=== PATIENT | male | born 1995 | race African-American/Black ===

== ENCOUNTER 2017-03-28 12:16 | Emergency (ER) | payer SELFPAY ==
[~2017-03-28] VITALS: Ht 188 cm; Wt 68.0 kg
[~2017-03-28 12:16] MED LIST: DICL50 PO
[2017-03-28 12:19] VITALS: BP 125/69; PULSE 82; RESP 18; TEMP 97.9; O2SAT 100
[2017-03-28] MEDS ORDERED: SODIUM CHLOR 0.9% 1000 ML INJ 1,000 ML IV ONE (14:28)
[2017-03-28] MEDS ORDERED: LIDOCAINE HCL 1% 50 ML VIAL INFIL ONE (14:30)
[2017-03-28] MEDS ORDERED: TETANUS/DIPHTHERIA TOXOID ADULT 0.5 ML VIAL IM ONE (14:30)
--- NOTE | 2017-03-28 14:39 | PD ---
HPI Chief Complaint: Laceration/Skin Injury Time Seen by Provider: 14:20 Travel History International Travel<30 days: No Contact w/Intl Traveler<30days: No Traveled to known affect area: No History of Present Illness HPI 21-year-old male presents for evaluation. He reports that at 10 AM today he was getting out of the shower. He became lightheaded and passed out. He hit his chin on the ground. He quickly regained consciousness. He reports that he has felt tired earlier today but now feels fine. He has no pain, he denies any chest pain, shortness of breath, palpitations, lightheadedness, dizziness, headache, blurred vision. He has a laceration of the chin which is no longer bleeding. Last tetanus vaccination unknown. Denies any family history of sudden cardiac . Denies any syncopal events in the past. No other complaints. FOR[facility]LY [facility] Past Medical History Medical History: Denies Significant Hx Tetanus Vaccination: < 5 Years Past Surgical History Surgical History: No Previous Surgery Social History Alcohol Use: Yes Tobacco Use: Yes Substance Use: No Allergies-Medications (Allergen,Severity, Reaction): Coded Allergies: No Known Allergies (Unverified Adverse Reaction, Unknown, 03/28/17) Reported Meds & Prescriptions Reported Meds & Active Scripts Active No Active Prescriptions or Reported Medications Review of Systems Except as stated in HPI: all other systems reviewed are Neg Physical Exam Narrative GENERAL: Well-developed well-nourished male in no acute distress. He is awake, alert, interactive. SKIN: Warm and dry. 2 cm horizontal laceration to the chin. HEAD: Atraumatic. Normocephalic. EYES: Pupils equal and round. No scleral icterus. No injection or drainage. ENT: No nasal bleeding or discharge. Mucous membranes pink and moist. NECK: Trachea midline. No JVD. CARDIOVASCULAR: Regular rate and rhythm. No murmur appreciated. RESPIRATORY: No accessory muscle use. Clear to auscultation. Breath sounds equal bilaterally. GASTROINTESTINAL: Abdomen soft, non-tender, nondistended. Hepatic and splenic margins not palpable. MUSCULOSKELETAL: No obvious deformities. No clubbing. No cyanosis. No edema. NEUROLOGICAL: Awake and alert. No obvious cranial nerve deficits. Motor grossly within normal limits. Normal speech. PSYCHIATRIC: Appropriate mood and affect; insight and judgment normal. Data Data Last Documented VS Vital Signs Date Time Temp Pulse Resp B/P (MAP) Pulse Ox O2 Delivery O2 Flow Rate FiO2 03/28/17 12:19 97.9 82 18 125/69 (87) 100 Room Air Orders Orders Electrocardiogram (03/28/17 14:28) Basic Metabolic Panel (Bmp) (03/28/17 14:28) Complete Blood Count With Diff (03/28/17 14:28) Magnesium (Mg) (03/28/17 14:28) Iv Access Insert/Monitor (03/28/17 14:28) Sodium Chlor 0.9% 1000 Ml Inj (Ns 1000 M (03/28/17 14:28) Orthostatic Vital Signs (03/28/17 14:28) Lidocaine 1% Inj (50 Ml) (Xylocaine 1% I (03/28/17 14:30) Tetanus/Diphtheria Tox Adult (Tetanus/Di (03/28/17 14:30) Labs Laboratory Tests Test 03/28/17 14:45 White Blood Count 7.6 TH/MM3 Red Blood Count 4.88 MIL/MM3 Hemoglobin 14.7 GM/DL Hematocrit 44.7 % Mean Corpuscular Volume 91.7 FL Mean Corpuscular Hemoglobin 30.2 PG Mean Corpuscular Hemoglobin Concent 32.9 % Red Cell Distribution Width 13.5 % Platelet Count 141 TH/MM3 Mean Platelet Volume 9.3 FL Neutrophils (%) (Auto) 84.3 % Lymphocytes (%) (Auto) 10.1 % Monocytes (%) (Auto) 5.1 % Eosinophils (%) (Auto) 0.4 % Basophils (%) (Auto) 0.1 % Neutrophils # (Auto) 6.4 TH/MM3 Lymphocytes # (Auto) 0.8 TH/MM3 Monocytes # (Auto) 0.4 TH/MM3 Eosinophils # (Auto) 0.0 TH/MM3 Basophils # (Auto) 0.0 TH/MM3 CBC Comment DIFF FINAL Differential Comment Blood Urea Nitrogen 13 MG/DL Creatinine 0.91 MG/DL Random Glucose 84 MG/DL Calcium Level 9.3 MG/DL Magnesium Level 2.2 MG/DL Sodium Level 139 MEQ/L Potassium Level 4.3 MEQ/L Chloride Level 103 MEQ/L Carbon Dioxide Level 30.7 MEQ/L Anion Gap 5 MEQ/L Estimat Glomerular Filtration Rate 126 ML/MIN MDM Medical Decision Making Medical Screen Exam Complete: Yes Emergency Medical Condition: Yes Medical Record Reviewed: Yes Differential Diagnosis Vasovagal syncope, orthostatic hypotension, arrhythmia, electrolyte abnormality , obstructive cardiomyopathy, hypoglycemia Narrative Course 21-year-old otherwise healthy male presents after having a syncopal event getting out of the shower. He presents with a laceration of the chin. He is currently asymptomatic. Physical examination reveals a 2 similar laceration of the chin, otherwise examination is unremarkable. Tetanus status updated. The laceration will be repaired with sutures, a verbally consents. Plan is for basic lab work, orthostatic vital signs, ECG. EKG reveals J-point ST elevation , discussed with my attending. Lab work is unremarkable. The patient has been asymptomatic during his hospital stay. He is stable for discharge. Procedures Procedure Narrative LACERATION repaired with medical student Jose LOCATION: Chin LENGTH: 2 cm NUMBER OF STITCHES/SHIRA: 3 REPAIR: The area of the laceration was prepped with Betadine and sterilely draped. The laceration was infiltrated with 1% lidocaine. The wound was copiously irrigated and explored without evidence of foreign body, tendon injury or neurovascular injury. The wound was closed using 6-0 prolene simple interrupted. This was a single layer repair. A sterile dressing was applied. The patient was advised to keep the dressing clean and dry. Patient tolerated the procedure well. Diagnosis Primary Impression: Chin laceration Additional Impression: Syncope Additional Instructions: Washout soap and water and apply antibiotic cream twice daily. Return in approximately 5 days for suture removal. Follow-up with primary care physician as needed. Med/Other Pt SpecificInfo: Wound Care Scripts No Active Prescriptions or Reported Meds Disposition: 01 DISCHARGE HOME Condition: Stable Mohan Jameson Mar 28, 2017 14:39
[2017-03-28 15:09] LABS: AUTOMATED NEUTROPHIL # 6.4 TH/MM3 (1.8-7.7); BASOPHIL % 0.1 % (0.0-2.0); EOSINOPHIL % 0.4 % (0.0-4.0); HEMATOCRIT 44.7 % (39.0-51.0); HEMO FLAGS DIFF FINAL; LYMPH % 10.1 % (9.0-44.0); LYMPHOCYTE # 0.8 TH/MM3 (1.0-4.8); MEAN CELL VOLUME 91.7 FL (80.0-100.0); MEAN CORPUSCULAR HEMOGLOBIN 30.2 PG (27.0-34.0); MEAN CORPUSCULAR HGB CONC 32.9 % (32.0-36.0); MONO % 5.1 % (0.0-8.0); NEUT % 84.3 % (16.0-70.0); PLATELET COUNT 141 TH/MM3 (150-450); RED BLOOD COUNT 4.88 MIL/MM3 (4.50-5.90); RED CELL DISTRIBUTION WIDTH 13.5 % (11.6-17.2); WHITE BLOOD COUNT 7.6 TH/MM3 (4.0-11.0)
[2017-03-28 15:26] LABS: BICARBONATE 30.7 MEQ/L (21.0-32.0); MAGNESIUM 2.2 MG/DL (1.5-2.5); POTASSIUM 4.3 MEQ/L (3.5-5.1)
[2017-03-28 15:37] VITALS: BP_SYST 112; BP_SYST 114; BP_DIAS 71; BP_DIAS 75; RESP 20
--- NOTE | 2017-03-29 18:22 | EKG ---
Date Performed: 03/28/2017 Time Performed: 14:38:37 PTAGE: 21 years EKG: Sinus rhythm WITH SINUS ARRHYTHMIA POSSIBLE RIGHT VENTRICULAR CONDUCTION DELAY EARLY REPOLARIZATION BORDERLINE EC G NO PREVIOUS TRACING Patient has fairly diffuse ST elevation, and pericarditis as well as myocardial injury should be excluded clinically, but the likely cause is early repolarization. There is no prior tracing for comparison. DOCTOR: Josefa Fair Interpretating Date/Time 03/29/2017 18:21:05
== END 2017-03-28 16:06 | disposition home or self-care (01) ==
LOC: NEPD 12:16
DX: S01.81XD Laceration without foreign body of other part of head, subsequent encounter (principal); W19.XXXA Unspecified fall, initial encounter; Y93.E1 Activity, personal bathing and showering; Y92.002 Bathroom of unspecified non-institutional (private) residence as the place of occurrence of the external cause; R55 Syncope and collapse; Z23 Encounter for immunization
CPT/HCPCS: 12011; 80048; 83735; 85025; 90471; 93005; 99284; J7030

== ENCOUNTER 2017-04-03 19:06 | Emergency (ER) | payer SELFPAY ==
[~2017-04-03] VITALS: Ht 188 cm; Wt 70.0 kg
[2017-04-03 19:08] VITALS: BP 120/73; PULSE 61; RESP 16; TEMP 98.8; O2SAT 100
--- NOTE | 2017-04-03 19:23 | PD ---
HPI Chief Complaint: Wound/Suture/Staple Re-Check Time Seen by Provider: 19:19 Travel History International Travel<30 days: No Contact w/Intl Traveler<30days: No Traveled to known affect area: No History of Present Illness HPI 21-year-old black male presents to emergency department for suture removal from his chin. Laceration 6 days ago. No complaints PFSH Past Medical History Diminished Hearing: No Medical other: Yes (spontaious Pneumothorax) Tetanus Vaccination: < 5 Years Past Surgical History Other Surgery: Yes (chest tube ) Social History Alcohol Use: No Tobacco Use: No Substance Use: No Allergies-Medications (Allergen,Severity, Reaction): Coded Allergies: No Known Allergies (Unverified Adverse Reaction, Unknown, 03/28/17) Reported Meds & Prescriptions Reported Meds & Active Scripts Active No Active Prescriptions or Reported Medications Review of Systems General / Constitutional: No: Fever Eyes: No: Visual changes HENT: No: Headaches Cardiovascular: No: Chest Pain or Discomfort Respiratory: No: Shortness of Breath Gastrointestinal: No: Abdominal Pain Genitourinary: No: Dysuria Musculoskeletal: No: Pain Skin: No Rash Neurologic: No: Weakness Psychiatric: No: Depression Endocrine: No: Polydipsia Hematologic/Lymphatic: No: Easy Bruising Physical Exam Narrative GENERAL: This is a well-nourished, well-developed patient, in no apparent distress. SKIN: No rashes, ecchymoses or lesions. Warm and dry. Patient is a well healed chin laceration no signs of infection. HEAD: Atraumatic. Normocephalic. EYES: PERRL, EOMI, no discharge or injection. No scleral icterus. EARS: Clear NOSE: Nasal turbinates appear normal. THROAT: Mucosa pink and moist. Airway patent. NECK: Trachea midline. supple, moves head freely. LUNGS: Clear to auscultation. CV: Regular in rhythm. ABDOMEN: Soft nontender. EXT: No clubbing cyanosis or edema. Data Data Last Documented VS Vital Signs Date Time Temp Pulse Resp B/P (MAP) Pulse Ox O2 Delivery O2 Flow Rate FiO2 04/03/17 19:08 98.8 61 16 120/73 (89) 100 MDM Medical Decision Making Medical Screen Exam Complete: Yes Emergency Medical Condition: Yes Medical Record Reviewed: Yes Differential Diagnosis MDM: High Differential diagnoses: Fracture, sprain, strain, dislocation, contusion, neurovascular injury Narrative Course Patient's sutures are removed without incidence Diagnosis Primary Impression: Visit for suture removal Patient Instructions: General Instructions Additional Instructions: Rest. Tylenol or Advil for pain. Daily wound care with soap, water, Neosporin. Sunscreen and mederma for 6 months. Return to the ER for any problems. Med/Other Pt SpecificInfo: Wound Care Scripts No Active Prescriptions or Reported Meds Disposition: 01 DISCHARGE HOME Condition: Stable Vamsi Bird Apr 03, 2017 19:23
== END 2017-04-03 19:35 | disposition home or self-care (01) ==
LOC: NEPK 19:06
DX: Z48.02 Encounter for removal of sutures (principal)
CPT/HCPCS: 99281